=== PATIENT | female | born 1965 | race Caucasian/White ===

== ENCOUNTER 2016-09-17 15:59 | Emergency (ER) | payer OTHER ==
[2016-09-17] MEDS ORDERED: DUONEB INH ONE (20:06)
[2016-09-17] MEDS ORDERED: METHYLPRED SOD SUCC 125 MG/2 ML VIAL ONE (20:13)
== END 2016-09-17 21:16 | disposition home or self-care (01) ==
LOC: ER 15:59
DX: J20.9 Acute bronchitis, unspecified (principal)
CPT/HCPCS: 71020; 87804; 87880; 94640; 96372

== ENCOUNTER 2016-10-11 19:27 | Emergency (ER) | payer OTHER | END 2016-10-11 22:16 | disposition home or self-care (01) | LOC: ER 19:27 | DX: M54.5 Low back pain (principal); F17.210 Nicotine dependence, cigarettes, uncomplicated | CPT/HCPCS: 96372 ==